=== PATIENT | male | born 1990 | race Caucasian/White ===

== ENCOUNTER 2017-06-06 17:36 | Emergency (ER) | payer SELFPAY ==
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
[2017-06-06 20:28] VITALS: BP 130/82
== END 2017-06-06 20:29 | disposition home or self-care (01) ==
PROC: 0HQ1XZZ Repair Face Skin, External Approach (ICD-10-PCS; principal; 2017-06-06)
DX: S01.112A Laceration without foreign body of left eyelid and periocular area, initial encounter (principal); Y00.XXXA Assault by blunt object, initial encounter; Y92.89 Other specified places as the place of occurrence of the external cause; Y99.8 Other external cause status; Y93.89 Activity, other specified